=== PATIENT | female | born 1985 | race Caucasian/White ===

== ENCOUNTER 2016-07-11 17:36 | Outpatient (CLI) | payer OTHER ==
[~2016-07-11 17:36] MED LIST: MTR600X PO; OXYC-57 PO; PRENTAB26 PO
== END 2016-07-11 18:10 | disposition home or self-care (01) ==
LOC: C.LD 17:36 → C.OPB 17:36
PROVIDERS: ATTEND Obstetrics & Gynecology
DX: O30.003 Twin pregnancy, unspecified number of placenta and unspecified number of amniotic sacs, third trimester (principal); Z3A.32 32 weeks gestation of pregnancy

== ENCOUNTER 2016-07-18 18:52 | Outpatient (CLI) | payer OTHER ==
--- NOTE | 2016-07-25 11:34 | EDITING REQUIRED CODING QUERY ---
DIAGNOSIS NEEDED To promote full compliance with coding requirements relating to patient care, physician participation is requested in all cases of coil placer uncertainty. Please assist us with the question(s) below: Coding Question: The patient received care in labor and delivery on 07/18/16 as noted within the record. Please document the diagnosis that is being addressed by the medication/treatment. Provider Response: DIAGNOSIS: Twins Thank you for your assistance, Ting Holt - Tufting Supervisor
[2016-08-04] MEDS ORDERED: OXYC-57 PO (08:00)
[2016-08-04] MEDS ORDERED: MTR600X PO (08:00)
== END 2016-07-18 19:20 | disposition home or self-care (01) ==
LOC: C.LD 18:52 → C.OPB 18:52
PROVIDERS: ATTEND Obstetrics & Gynecology
DX: O30.009 Twin pregnancy, unspecified number of placenta and unspecified number of amniotic sacs, unspecified trimester (principal); Z3A.00 Weeks of gestation of pregnancy not specified

== ENCOUNTER 2016-07-25 15:56 | Outpatient (CLI) | payer OTHER ==
--- NOTE | 2016-07-27 07:01 | EDITING REQUIRED CODING QUERY ---
DIAGNOSIS NEEDED To promote full compliance with coding requirements relating to patient care, physician participation is requested in all cases of erp consultant uncertainty. Please assist us with the question(s) below: Coding Question: The patient received care in labor and delivery on 07/25/16 as noted within the record. Please document the diagnosis that is being addressed by the medication/treatment. Provider Response: DIAGNOSIS: Twin Thank you for your assistance, Ting Holt - Scientific Technical Writer
== END 2016-07-25 17:30 | disposition home or self-care (01) ==
LOC: C.LD 15:56 → C.OPB 15:56
PROVIDERS: ATTEND Obstetrics & Gynecology
DX: O30.003 Twin pregnancy, unspecified number of placenta and unspecified number of amniotic sacs, third trimester (principal); Z3A.34 34 weeks gestation of pregnancy

== ENCOUNTER 2016-08-01 10:45 | Inpatient (IN) | payer OTHER ==
[~2016-08-01] VITALS: Ht 157.5 cm; Wt 85.5 kg
[2016-08-01] MEDS: CHECK SCOPOLAMINE PATCH PLACEMENT SCH (08:10)
[2016-08-01] MEDS ORDERED: LACTATED RINGER'S 1000ML 1,000 ML IV ONE (13:24)
[2016-08-01] MEDS ORDERED: CITRIC ACID/SODIUM CITRATE 15 ML UDC PO ONE (13:30)
[2016-08-01 13:49] LABS: BASO % 0.1 %; BASO ABS # 0.01 K/uL (0-0.2); COMPLETE YES; EOS % 2.9 %; HEMATOCRIT 38.5 % (37-47); IG% 0.5 %; LYMPH % 18.3 %; LYMPH ABS # 1.69 K/uL (1.2-3.4); MEAN CELL VOLUME 90.4 fL (80-100); MEAN CORPUSCULAR HEMOGLOBIN 31.5 pg (25-34); MEAN CORPUSCULAR HGB CONC 34.8 g/dl (32-36); MEAN PLATELET VOLUME 11.6 fL (7.4-10.4); MONO % 8.3 %; NEUT % 69.9 %; PLATELET COUNT 148 K/uL (130-400); RED BLOOD COUNT 4.26 M/uL (4.2-5.4); WHITE BLOOD COUNT 9.21 K/uL (4.8-10.8)
[2016-08-01] MEDS ORDERED: CEFAZOLIN IV 2,000 MG in DEXTROSE 5% 50ML 50 ML IV SCH (14:00)
--- NOTE | 2016-08-01 14:08 | Medical Student: [facility] ---
Med Student History & Physical Date of Service Aug 01, 2016. Chief Complaint NST and early labor History of Present Illness Source: patient, clinic records This is 31 year-old female with twin and GA of 35 weeks and 4 days confirmed by US presents for NST with strong contractions. Frequency of contractions is unsure prior to arriving at hospital. She had headache and nausea early this morning, which resolved. She also has constant back pain and ache at the pubic bone. movements are present. She denies vaginal bleeding or fluid discharge. She also denies change in visions, chest pain, SOB , numbness/tingling or calf tenderness. Her course of is complicated for positive 1hr-glucose challenge test. 2hr-glucose challenge test was not done. She was scheduled to have and BTL on Aug 09, 2016 at 37 weeks of gestation. Her prior 2 pregnancies were non-complicated with the first one delivered vaginally and the second one C- section delivered. 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[employer]) Allergies Coded Allergies: Penicillins (Unverified Allergy, Severe, hives, 10/04/14) Amoxicillin (Verified Allergy, Mild, hives, 10/04/14) Home Medications Ibuprofen (Ibuprofen), 600 MG PO Q4H PRN for Pain Multivit/Min/Iron/Fol Ac/Pren ( Vitamin), 1 TAB PO DAILY Oxycodone/Acetaminophen 5MG/325MG (Percocet 5MG/325MG), 2 TAB PO Q4H PRN for Pain - Pain Scale 6-10 Review of Systems Constitutional: No chills, No fever Eyes: No worsening of vision Respiratory: No shortness of breath Cardiovascular: No chest pain Abdomen: + problem reported (contractions - pressure) Musculoskeletal: No calf pain Genitourinary - Female: No vaginal bleeding, No vaginal discharge Neurologic: No numbness/tingling Physical Exam General Appearance: no apparent distress Eyes: normal inspection ENT: hearing grossly normal Neck: supple Respiratory/Chest: lungs clear, normal breath sounds Cardiovascular: regular rate, rhythm, no murmur Abdomen / GI: non tender Genitourinary - Female: + pertinent finding (Cervix check by Dr. Paul 50/-3 ) Extremities: normal inspection, no calf tenderness, no pedal edema Neurologic/Psych: alert, oriented x 3 Skin: normal color Monitoring External Monitor: Reactive - FHR 140s, accelerations, no decelerations. Laboratory Results Test 08/01/16 13:24 Assessment and Plan This is 31 year-old female with twin and GA of 35 weeks and 4 days presents for NST and frequent, strong contractions. Dr. Paul did an exam and patient has progressed from "finger-tip" to /-3 within 1 hour. She is in early labor. Plan Monitoring patient with periodically cervix check. Plan for repeat due to prior . Patient also desires to have tubal ligation done. Provide comfort.
[2016-08-01 14:51] VITALS: Ht 157.5 cm; Wt 85.5 kg
[2016-08-01] MEDS ORDERED: CITRIC ACID/SODIUM CITRATE 15 ML UDC ONE (16:42)
[2016-08-01] MEDS ORDERED: MoRPHine SULFATE PF 1 MG/ML 10 ML AMP/VIAL ONE (16:57)
[2016-08-01] MEDS ORDERED: EpHEDrine SULFATE INJ 50 MG/ML AMP IV PRN ×2 (17:15→18:15)
[2016-08-01] MEDS ORDERED: MEPERIDINE HCL 25 MG/ML CARP IV PRN ×2 (17:15→18:15)
[2016-08-01] MEDS ORDERED: FENTANYL CITRATE INJ 50 MCG/1 ML 2 ML VIAL IV PRN (17:15)
[2016-08-01] MEDS ORDERED: ATROPINE SULFATE 0.1 MG/ML 5ML SYR IV PRN (17:15)
[2016-08-01] MEDS ORDERED: ONDANSETRON INJ 2 MG/ML 2 ML VIAL IV PRN ×2 (17:15→18:15)
[2016-08-01] MEDS ORDERED: LABETALOL HCL IV 5 MG/ML 20ML IV PRN (17:15)
[2016-08-01] MEDS ORDERED: HYDROmorphone INJ 1 MG/ML SYR IV PRN (17:15)
[2016-08-01] MEDS ORDERED: SCOPOLAMINE 1.5 MG TDSY TD SCH (17:45)
[2016-08-01] MEDS ORDERED: SODIUM CHLORIDE 0.9% 1000ML 1,000 ML IV PRN (18:06)
[2016-08-01] MEDS ORDERED: NALOXONE HCL INJ 0.08 MG in SYRINGE 1.8 ML IV PRN (18:06)
[2016-08-01] MEDS ORDERED: NALOXONE HCL INJ 1 MG in SODIUM CHLORIDE 0.9% 1000ML 1,000 ML IV PRN (18:06)
[2016-08-01] MEDS ORDERED: LACTATED RINGER'S 1000ML 500 ML IV PRN (18:06)
[2016-08-01] MEDS ORDERED: ONDANSETRON INJ 2 MG/ML 2 ML VIAL ONE (18:09)
[2016-08-01] MEDS ORDERED: DEXAMETHASONE SOD INJ 4 MG/ML VIAL ONE (18:09)
[2016-08-01] MEDS ORDERED: OXYTOCIN INJ 10 UNITS/ML VIAL ONE (18:09)
[2016-08-01] MEDS ORDERED: PHENYLEPHRINE 100MCG/ML 5ML SYR ONE (18:12)
[2016-08-01] MEDS ORDERED: EpHEDrine SULFATE 50MG/5ML SYR ONE (18:12)
[2016-08-01] MEDS ORDERED: NO NARCOTICS OR SEDATIVES SCH (18:15)
[2016-08-01] MEDS ORDERED: DiphenhydrAMINE HCL 50 MG/ML VIAL IV PRN ×2 (18:15)
[2016-08-01] MEDS ORDERED: MoRPHine SULFATE PF 1 MG/ML 10 ML AMP/VIAL EPI PRN (18:15)
[2016-08-01] MEDS ORDERED: NALOXONE HCL 0.4 MG/1 ML VIAL/CARP IV PRN (18:15)
[2016-08-01] MEDS ORDERED: MoRPHine SULFATE 2 MG/ML CARP IV PRN (18:15)
[2016-08-01] MEDS ORDERED: METOCLOPRAMIDE HCL INJ 20 MG in SODIUM CHLORIDE 0.9% 50ML 50 ML IV PRN (18:15)
[2016-08-01] MEDS ORDERED: PROMETHAZINE HCL INJ 25 MG in SODIUM CHLORIDE 0.9% 50ML 50 ML IV PRN (18:15)
[2016-08-01] MEDS ORDERED: LACTATED RINGER'S 1000ML 1,000 ML IV SCH (18:20)
[2016-08-01] MEDS ORDERED: BENZOCAINE 20% AER SPR 82.5 GM CAN EXT PRN (18:30)
[2016-08-01] MEDS ORDERED: HYDROCORTISONE ACETATE 25 MG SUPP PR PRN (18:30)
[2016-08-01] MEDS ORDERED: SUPERCREAM 0.870 % 15GM JAR EXT PRN (18:30)
[2016-08-01] MEDS ORDERED: LANOLIN OINT EXT PRN ×2 (18:30)
[2016-08-01] MEDS ORDERED: DIPHTHERIA/TETANUS/PERTUSSIS 0.5 ML SYR/VIAL IM. ONE (18:30)
--- NOTE | 2016-08-01 18:43 | [facility] Post Operative Brief Note ---
Immediate Operative Summary Operative Date Aug 01, 2016. Pre-Operative Diagnosis Summers/Di twins at 35 and 4/7 week. Prior caesarean section. Declines . Desires sterilization. Post-Operative Diagnosis Same as above. Procedure(s) Performed Repeat caesarean section with bilateral tubal ligation. Surgeon Dr Paul Laser/Electro Optics Technician Surgeon(s) Dr. Pool Estimated Blood Loss 600cc Findings normal ovaries and tubes bilaterally. Babies Vtx/Vtx with separate amniotic sacs. Placenta with excessive markel jelly in cord of B. Specimens A: Placenta cordA one clamp, cord B two clamps B: Cord Blood C: Portion of right and left fallopian tubes Complication(s) None Disposition L&D
[2016-08-01] MEDS: OXYTOCIN INJ 30 UNITS in LACTATED RINGER'S 1000ML 1,000 ML IV SCH (19:09)
[2016-08-01] MEDS: KETOROLAC TROMETHAMINE 30 MG/ML VIAL IV. PRN (19:17)
[2016-08-01] MEDS: NALBUPHINE HCL INJ 10 MG/ML AMP IV PRN (20:41)
[2016-08-01 21:25] VITALS: BP 104/64; PULSE 72; TEMP 36.4; O2SAT 100
[2016-08-01] MEDS: SIMETHICONE 80 MG CHEW PO SCH (21:30)
[2016-08-01] MEDS: DOCUSATE SODIUM 100 MG CAP PO SCH (21:30)
[2016-08-01 22:25] VITALS: BP 120/72; PULSE 62; O2SAT 100
[2016-08-01 23:56] VITALS: BP 128/76; PULSE 62; TEMP 36.6; O2SAT 100
[2016-08-02] VITALS (17 sets, daily range): BP systolic 102–114; BP diastolic 59–73; PULSE 60–98; TEMP 36.3–36.6; O2SAT 93–100
[2016-08-02] MEDS: KETOROLAC TROMETHAMINE 30 MG/ML VIAL IV. PRN ×2 (01:37→08:04)
[2016-08-02] MEDS: NALBUPHINE HCL INJ 10 MG/ML AMP IV PRN (01:37)
[2016-08-02] MEDS: OXYTOCIN INJ 30 UNITS in LACTATED RINGER'S 1000ML 1,000 ML IV SCH (04:34)
[2016-08-02] MEDS: SIMETHICONE 80 MG CHEW PO SCH ×4 (06:24→20:11)
--- NOTE | 2016-08-02 07:04 | Progress Note ---
Subjective Aug 02, 2016. Subjective conversation w/ patient, physical exam Ambulation: ambulating normally Voiding: no voiding problems Passing Gas: Yes Diet Tolerance: Regular Diet Lochia: Small Feeding Type: Breast Feeding Pain: Incisional pain well controlled with pain medication Review of Systems Constitutional: No chills, No fever Respiratory: No cough, No shortness of breath Cardiac: No chest pain Breast: No breast pain Abdomen: No nausea, No pain, No vomiting Female : No dysuria Objective Vital Signs Date Time Temp Pulse Resp B/P Pulse Ox O2 Delivery O2 Flow Rate FiO2 08/02/16 06:00 18 98 08/02/16 04:56 18 98 08/02/16 04:56 36.3 98 18 104/59 08/02/16 04:00 20 99 08/02/16 03:25 22 99 08/02/16 03:00 18 93 08/02/16 02:00 18 100 08/02/16 01:00 18 95 08/02/16 00:04 18 100 08/02/16 00:00 100 Room Air 08/01/16 23:56 36.6 62 18 128/76 100 Room Air 08/01/16 22:25 18 100 08/01/16 22:25 62 18 120/72 100 Room Air 08/01/16 21:25 100 Room Air 08/01/16 21:25 36.4 72 18 104/64 100 Room Air 08/01/16 21:25 18 100 Physical Exam General Appearance: WELL-APPEARING, WD/WN, NO APPARENT DISTRESS Respiratory/Chest: lungs clear, normal breath sounds Cardiovascular: regular rate, rhythm, no gallop, no murmur Abdomen: non tender, soft Fundus: Firm, Relation to Umbilicus (1cm below umbilicus) Incision Description: Clean, Dry & Intact Extremities: no calf tenderness Laboratory Results Last 24 Hours Test 08/01/16 13:40 08/02/16 06:00 White Blood Count 9.21 K/uL Red Blood Count 4.26 M/uL Hemoglobin 13.4 g/dL Hematocrit 38.5 % Mean Corpuscular Volume 90.4 fL Mean Corpuscular Hemoglobin 31.5 pg Mean Corpuscular Hemoglobin Concent 34.8 g/dl Platelet Count 148 K/uL Mean Platelet Volume 11.6 fL Neutrophils (%) (Auto) 69.9 % Lymphocytes (%) (Auto) 18.3 % Monocytes (%) (Auto) 8.3 % Eosinophils (%) (Auto) 2.9 % Basophils (%) (Auto) 0.1 % Neutrophils # (Auto) 6.43 K/uL Lymphocytes # (Auto) 1.69 K/uL Monocytes # (Auto) 0.76 K/uL Eosinophils # (Auto) 0.27 K/uL Basophils # (Auto) 0.01 K/uL RDW Standard Deviation 45.3 fL RDW Coefficient of Variation 13.8 % Immature Granulocyte % (Auto) 0.5 % Immature Granulocyte # (Auto) 0.05 K/uL Medications Current Inpatient Medications Medications (Trade) Dose Ordered Sig/Rhona Route Start Time Stop Time Status Last Admin Dose Admin Miscellaneous (Remove Transderm-Scop Patch) 1 ea Q72H N/A 08/04/16 06:00 08/04/16 06:01 Miscellaneous Information (Check Scopolamine Patch Placement) 1 ea QS N/A 08/01/16 16:00 08/04/16 05:59 Naloxone HCl (Narcan Inj) 0.1 mg UD PRN IV 08/01/16 18:15 08/02/16 11:15 Diphenhydramine HCl (Benadryl Inj) 25 mg Q6H PRN IV 08/01/16 18:15 08/02/16 11:15 Nalbuphine HCl 5 mg 5 mg Q10M PRN IV 08/01/16 18:15 08/02/16 11:15 08/02/16 01:37 5 MG Naloxone HCl/ Sodium Chloride (Narcan Inj/Nss 1000ml) 1,002.5 ml @ 50 mls/hr Q20H3M PRN IV 08/01/16 18:06 08/02/16 11:15 Ondansetron HCl 4 mg 4 mg Q6H PRN IV 08/01/16 18:15 08/02/16 11:15 08/02/16 01:37 4 MG Promethazine HCl/ Sodium Chloride (Phenergan Inj/ Nss 50ml) 51 ml @ 200 mls/hr Q6H PRN IV 08/01/16 18:15 08/02/16 11:15 Ketorolac Tromethamine (Toradol Inj) 30 mg Q6H PRN IV. 08/01/16 18:15 08/02/16 11:15 08/02/16 01:37 30 MG Meperidine HCl 25 mg 25 mg Q15M PRN IV 08/01/16 18:15 08/02/16 11:15 Metoclopramide HCl/Sodium Chloride (Reglan Inj/Nss 50ml) 54 ml @ 200 mls/hr Q6H PRN IV 08/01/16 18:15 08/02/16 11:15 Miscellaneous Information (Dc Intraspinal Morphine) 1 ea 1115 N/A 08/02/16 11:15 08/02/16 11:16 Miscellaneous Information 1 ea 1 ea UD N/A 08/01/16 18:15 08/02/16 11:15 Naloxone HCl/ Syringe (Narcan Inj/ Syringe) 2 ml @ 1 mls/min Q2M PRN IV 08/01/16 18:06 08/02/16 11:15 Diphenhydramine HCl (Benadryl Cap) 50 mg HS PRN PO 08/01/16 18:15 08/02/16 11:15 Diphenhydramine HCl (Benadryl Inj) 25 mg HS PRN IV 08/01/16 18:15 08/02/16 11:15 Morphine Sulfate 2 mg 2 mg Q6H PRN IV 08/01/16 18:15 08/15/16 11:15 Lactated Ringer's (Lr 1000ml) 500 ml @ 999 mls/hr Q31M PRN IV 08/01/16 18:06 08/02/16 11:15 Ephedrine Sulfate (EpHEDrine SULFATE INJ) 10 mg Q5M PRN IV 08/01/16 18:15 08/02/16 11:15 Morphine Sulfate TODAY PRN EPI 08/01/16 18:15 08/02/16 11:15 Sodium Chloride 1,000 ml @ 15 mls/hr Q24H PRN IV 08/01/16 18:06 08/31/16 18:05 Oxytocin 30 units/ Lactated Ringer's 1,003 ml @ 125 mls/hr Q8H2M IV 08/01/16 19:00 08/31/16 18:19 08/02/16 04:34 125 MLS/HR Lactated Ringer's (Lr 1000ml) 1,000 ml @ 125 mls/hr Q8H IV 08/01/16 18:20 08/31/16 18:19 Ketorolac Tromethamine (Toradol Inj) 30 mg Q6H PRN IV. 08/02/16 11:16 08/06/16 18:29 Meperidine HCl (Demerol Inj) 50 mg Q4H PRN IV 08/02/16 11:16 08/16/16 11:15 Meperidine HCl (Demerol Inj) 75 mg Q4H PRN IV 08/02/16 11:16 08/16/16 11:15 Oxycodone/ Acetaminophen (Percocet 5-325mg Tab) 1 tab Q4H PRN PO 08/02/16 11:16 08/16/16 11:15 Oxycodone/ Acetaminophen (Percocet 5-325mg Tab) 2 tab Q4H PRN PO 08/02/16 11:16 08/16/16 11:15 Ibuprofen 600 mg 600 mg Q4H PRN PO 08/01/16 18:30 08/31/16 18:29 Promethazine HCl/ Sodium Chloride (Phenergan Inj/ Nss 50ml) 51 ml @ 204 mls/hr Q4H PRN IV 08/02/16 11:16 09/01/16 11:15 Ondansetron HCl (Zofran Inj) 4 mg Q4H PRN IV 08/02/16 11:16 09/01/16 11:15 Prenat Multivit/ [place]/Iron/Folic Ac ( Vitamin Tab) 1 tab DAILY PO 08/02/16 08:00 09/01/16 07:59 Docusate Sodium (coLACE CAP) 100 mg BID PO 08/01/16 20:00 08/31/16 19:59 Cocaine HCl (Supercream 0.870% Cr) BID PRN EXT 08/01/16 18:30 08/15/16 18:29 Lanolin (Lanolin Oint) PRN PRN EXT 08/01/16 18:30 08/31/16 18:29 Hydrocortisone Acetate (Anusol Hc Supp) 25 mg BID PRN PA 08/01/16 18:30 08/31/16 18:29 Benzocaine (Dermoplast Aero Spr) 1 appln PRN PRN EXT 08/01/16 18:30 08/31/16 18:29 Simethicone (Mylicon Chew Tab) 80 mg QID PO 08/01/16 21:00 08/31/16 20:59 08/02/16 06:24 80 MG Diphenhydramine HCl (Benadryl Cap) 25 mg QID PRN PO 08/02/16 11:16 09/01/16 11:15 Diphenhydramine HCl (Benadryl Inj) 25 mg QID PRN IV 08/02/16 11:16 09/01/16 11:15 Assessment and Plan Post-Op Day#: 1 Continue Routine Care: - Vital Signs reviewed and WNL (temp max 36.3) - Blood Type: A+, GBS unknown , Rubella Immune - Patient doing well clinically - Encourage Ambulation today - Gonzales catheter still in place, observe for urination after gonzales removal this morning - Advance to PO diet, tolerating liquid diet currently - Pain well controlled, minor incisional pain treated with IV toradol Resident Physician Supervision Note: I interviewed and examined the patient. Discussed with Dr. Bradley and agree with findings and plan as documented in the note. Any exceptions or clarifications are listed here: [None] Documented By: Brandy Paul
[2016-08-02 07:25] LABS: BASO % 0.1 %; BASO ABS # 0.01 K/uL (0-0.2); COMPLETE YES; EOS % 0.1 %; HEMATOCRIT 32.6 % (37-47); IG% 0.3 %; LYMPH % 10.4 %; LYMPH ABS # 1.46 K/uL (1.2-3.4); MEAN CELL VOLUME 91.1 fL (80-100); MEAN PLATELET VOLUME 12.1 fL (7.4-10.4); NEUT % 80.1 %; PLATELET COUNT 133 K/uL (130-400); RED BLOOD COUNT 3.58 M/uL (4.2-5.4); WHITE BLOOD COUNT 14.06 K/uL (4.8-10.8)
--- NOTE | 2016-08-02 08:38 | OPERATIVE REPORT ---
DATE OF OPERATION: 08/01/2016 PREOPERATIVE DIAGNOSES: Monochorionic-diamniotic twins at 35 and 4/7 weeks, prior section, declines vaginal after , and desires sterilization. POSTOPERATIVE DIAGNOSES: Same as above. PROCEDURE: Repeat low transverse section with bilateral tubal ligation. SURGEON: Dr. Brandy Paul. BUTCHER SCULLION: Yrn. ESTIMATED BLOOD LOSS: 600 mL. FINDINGS: Normal ovaries and tubes bilaterally. Babies were vertex and vertex with separate amniotic sacs and a single placenta with excessive Yazmin jelly in the cord of baby B was also noted. SPECIMENS: Equal placenta with a single clamp on cord A and double clamp on cord B. Cord blood and the portions of right and left fallopian tubes. COMPLICATIONS: None. DISPOSITION: Stable in labor and delivery. DESCRIPTION OF PROCEDURE: Blossom was brought to the operating room, placed on the table in the supine position with a leftward tilt, prepped and draped in standard sterile fashion and a hard time-out was taken prior to proceeding. An incision was created just inferior to her prior Pfannenstiel. This was carried sharply to the fascia, which was incised and extended laterally using Lopez scissors. The midline of the rectus was naturally and the peritoneum was entered bluntly. A bladder blade was placed. Examination revealed the head of baby A in the normal position in the lower uterine segment. A bladder flap was created. A transverse low uterine incision was created with final entry to the uterus being made in a blunt manner using the surgeon's finger. This incision was extended. Two distinct amniotic sacs were visible through the hysterotomy. The sac of baby A was deliberately ruptured for clear fluid and the head of baby A was elevated to the hysterotomy and then delivered using mild fundal pressure. The cord was clamped and cut and the infant was taken to the warmer. Baby B's sac was then deliberately ruptured for clear fluid and the head of baby B, which was in the maternal left lower quadrant, was brought to the hysterotomy and again delivered with mild fundal pressure. The cord was clamped, cut and the was taken to the warmer. Two clamps were placed on the cord of baby B, which was noted to have increased Marinette's jelly as compared to the cord of baby A. The placenta was then manually extracted and will be sent for examination. The uterus was gently exteriorized, cleared of all clot and debris using a dry lap sponge. The hysterotomy was repaired in 2-layer fashion using 0 Vicryl suture. At the completion of the repair, the hysterotomy was hemostatic. Attention was then turned to the tubal ligation. Each tube in turn was elevated with a [place] clamp. Knuckle of tube was isolated using a double ligature of 0 chromic suture. The isolated portion of tube was then excised and will be sent for pathology. The cut ends of the tube were observed for hemostasis. This procedure was performed first on the right side and then on the left side. Ovaries were noted to be normal appearing bilaterally. Reexamination of the hysterotomy revealed a small amount of bleeding at the mid portion of the incision. This was controlled using a [id number] 0 chromic suture. The uterus was then gently reapproximated. The gutters were cleared of all clot and debris using damp lap sponges and copious irrigation. The final check of the hysterotomy revealed good hemostasis. The abdominis muscles were then reapproximated in the midline at the patient's request using 0 chromic suture. The fascia was then closed using #1 Vicryl in a running nonlocked manner, at the completion of which the fascia was examined and found to be free of any defect. The subcutaneous tissue was irrigated and closed with 3-0 chromic and the skin was closed with 4-0 Monocryl followed by a Dermabond dressing. The [place] was draining clear yellow urine and the patient was in stable condition at that time the surgical procedure being completed. I attest to the content of the Intraoperative Record and any orders documented therein. Any exceptio ns are noted below.
[2016-08-02] MEDS: PRENATAL VITAMIN TAB PO SCH (10:22)
[2016-08-02] MEDS: DOCUSATE SODIUM 100 MG CAP PO SCH ×2 (10:22→20:11)
[2016-08-02] MEDS ORDERED: DC INTRASPINAL MORPHINE SCH (11:15)
[2016-08-02] MEDS ORDERED: DiphenhydrAMINE HCL 50 MG/ML VIAL IV PRN (11:16)
[2016-08-02] MEDS ORDERED: KETOROLAC TROMETHAMINE 30 MG/ML VIAL IV. PRN (11:16)
[2016-08-02] MEDS ORDERED: OXYCODONE/ACETAMINOPHEN 5-325 TAB PO PRN (11:16)
[2016-08-02] MEDS ORDERED: ONDANSETRON INJ 2 MG/ML 2 ML VIAL IV PRN (11:16)
[2016-08-02] MEDS ORDERED: MEPERIDINE HCL 50 MG/ML CARP IV PRN (11:16)
[2016-08-02] MEDS ORDERED: PROMETHAZINE HCL INJ 25 MG in SODIUM CHLORIDE 0.9% 50ML 50 ML IV PRN (11:16)
[2016-08-02] MEDS ORDERED: MEPERIDINE HCL 75 MG/ML CARP IV PRN (11:16)
[2016-08-02] MEDS: OXYCODONE/ACETAMINOPHEN 5-325 TAB PO PRN ×3 (14:06→22:06)
[2016-08-02] MEDS: IBUPROFEN 600 MG TAB PO PRN ×3 (14:06→22:07)
[2016-08-02] MEDS: CHECK SCOPOLAMINE PATCH PLACEMENT SCH (15:00)
[2016-08-03 00:02] VITALS: BP 121/75; PULSE 79; TEMP 36.6
[2016-08-03] MEDS: OXYCODONE/ACETAMINOPHEN 5-325 TAB PO PRN ×5 (01:35→19:54)
[2016-08-03] MEDS: IBUPROFEN 600 MG TAB PO PRN ×5 (01:35→19:54)
--- NOTE | 2016-08-03 06:57 | Progress Note ---
Subjective Aug 03, 2016. Subjective conversation w/ patient, physical exam Ambulation: ambulating normally Voiding: no voiding problems Passing Gas: Yes Diet Tolerance: Regular Diet Lochia: Small Feeding Type: Breast Feeding Pain: No pain reported Review of Systems Constitutional: No chills, No fever Respiratory: No cough, No shortness of breath Cardiac: No chest pain Breast: No breast pain Abdomen: No nausea, No pain, No vomiting Female : No dysuria Objective Vital Signs Date Time Temp Pulse Resp B/P Pulse Ox O2 Delivery O2 Flow Rate FiO2 08/03/16 00:05 Room Air 08/03/16 00:02 36.6 79 18 121/75 Room Air 08/02/16 15:45 36.6 67 20 114/73 100 Room Air 08/02/16 15:45 36.6 67 18 114/73 100 Room Air 08/02/16 15:45 100 Room Air 08/02/16 12:50 36.6 71 20 106/64 97 Room Air 08/02/16 11:00 18 98 08/02/16 10:00 18 97 08/02/16 09:00 18 99 08/02/16 08:30 36.6 60 18 102/61 98 Room Air 08/02/16 08:30 98 Room Air 08/02/16 08:00 20 98 08/02/16 07:00 20 99 Physical Exam General Appearance: WELL-APPEARING, WD/WN, NO APPARENT DISTRESS Respiratory/Chest: lungs clear, normal breath sounds Cardiovascular: regular rate, rhythm, no gallop, no murmur Abdomen: non tender, soft Fundus: Firm, Relation to Umbilicus (1cm below umbilicus) Incision Description: Clean, Dry & Intact Extremities: no calf tenderness Medications Current Inpatient Medications Medications (Trade) Dose Ordered Sig/Rhona Route Start Time Stop Time Status Last Admin Dose Admin Miscellaneous (Remove Transderm-Scop Patch) 1 ea Q72H N/A 08/04/16 06:00 08/04/16 06:01 Miscellaneous Information (Check Scopolamine Patch Placement) 1 ea QS N/A 08/01/16 16:00 08/04/16 05:59 08/02/16 15:00 1 EA Morphine Sulfate 2 mg 2 mg Q6H PRN IV 08/01/16 18:15 08/15/16 11:15 Sodium Chloride 1,000 ml @ 15 mls/hr Q24H PRN IV 08/01/16 18:06 08/31/16 18:05 Oxytocin 30 units/ Lactated Ringer's 1,003 ml @ 125 mls/hr Q8H2M IV 08/01/16 19:00 08/31/16 18:19 08/02/16 04:34 125 MLS/HR Lactated Ringer's (Lr 1000ml) 1,000 ml @ 125 mls/hr Q8H IV 08/01/16 18:20 08/31/16 18:19 Ketorolac Tromethamine (Toradol Inj) 30 mg Q6H PRN IV. 08/02/16 11:16 08/06/16 18:29 Meperidine HCl (Demerol Inj) 50 mg Q4H PRN IV 08/02/16 11:16 08/16/16 11:15 Meperidine HCl (Demerol Inj) 75 mg Q4H PRN IV 08/02/16 11:16 08/16/16 11:15 Oxycodone/ Acetaminophen (Percocet 5-325mg Tab) 1 tab Q4H PRN PO 08/02/16 11:16 08/16/16 11:15 08/03/16 01:35 1 TAB Oxycodone/ Acetaminophen (Percocet 5-325mg Tab) 2 tab Q4H PRN PO 08/02/16 11:16 08/16/16 11:15 Ibuprofen 600 mg 600 mg Q4H PRN PO 08/01/16 18:30 08/31/16 18:29 08/03/16 01:35 600 MG Promethazine HCl/ Sodium Chloride (Phenergan Inj/ Nss 50ml) 51 ml @ 204 mls/hr Q4H PRN IV 08/02/16 11:16 09/01/16 11:15 Ondansetron HCl (Zofran Inj) 4 mg Q4H PRN IV 08/02/16 11:16 09/01/16 11:15 Prenat Multivit/ Utilities Ground Worker/Iron/Folic Ac ( Vitamin Tab) 1 tab DAILY PO 08/02/16 08:00 09/01/16 07:59 08/02/16 10:22 1 TAB Docusate Sodium (coLACE CAP) 100 mg BID PO 08/01/16 20:00 08/31/16 19:59 08/02/16 20:11 100 MG Cocaine HCl (Supercream 0.870% Cr) BID PRN EXT 08/01/16 18:30 08/15/16 18:29 Lanolin (Lanolin Oint) PRN PRN EXT 08/01/16 18:30 08/31/16 18:29 Hydrocortisone Acetate (Anusol Hc Supp) 25 mg BID PRN [place] 08/01/16 18:30 08/31/16 18:29 Benzocaine (Dermoplast Aero Spr) 1 appln PRN PRN EXT 08/01/16 18:30 08/31/16 18:29 Simethicone (Mylicon Chew Tab) 80 mg QID PO 08/01/16 21:00 08/31/16 20:59 08/02/16 20:11 80 MG Diphenhydramine HCl (Benadryl Cap) 25 mg QID PRN PO 08/02/16 11:16 09/01/16 11:15 08/02/16 22:35 25 MG Diphenhydramine HCl (Benadryl Inj) 25 mg QID PRN IV 08/02/16 11:16 09/01/16 11:15 Assessment and Plan Post-Op Day#: 2 Continue Routine Care: - Vital Signs reviewed and WNL (temp max 36.6) - Blood Type: A+, GBS unknown , Rubella Immune - Patient doing well clinically - Encourage Ambulation today - Tolerating PO Diet - Pain well controlled Resident Physician Supervision Note: I was present with Dr. Bradley during the history and exam. I discussed the case with the resident and agree with the findings and plan as documented in the note. Any exceptions or clarifications are listed here: POD#2 twins , doing well. Goals for today: ambulation and PO hydration. Anticipate discharge home tomorrow. Documented By: Sintia Pool
[2016-08-03] MEDS: DOCUSATE SODIUM 100 MG CAP PO SCH ×2 (07:19→19:53)
[2016-08-03] MEDS: PRENATAL VITAMIN TAB PO SCH (07:19)
[2016-08-03] MEDS: SIMETHICONE 80 MG CHEW PO SCH ×4 (07:19→19:53)
[2016-08-03 08:00] VITALS: BP 122/71; PULSE 78; TEMP 36.7
[2016-08-03] MEDS: CHECK SCOPOLAMINE PATCH PLACEMENT SCH (16:00)
[2016-08-03 16:40] VITALS: BP 124/80; PULSE 73; TEMP 36.6; O2SAT 98
[2016-08-03] MEDS ORDERED: SENNA 8.6 MG TAB PO SCH (22:00)
[2016-08-03] MEDS ORDERED: MAGNESIUM HYDROXIDE SUSP 30 ML UDC PO SCH (22:00)
[2016-08-03 23:50] VITALS: BP 117/76; PULSE 78; TEMP 36.7; O2SAT 100
[2016-08-04] MEDS: CHECK SCOPOLAMINE PATCH PLACEMENT SCH
[2016-08-04] MEDS: IBUPROFEN 600 MG TAB PO PRN ×4 (00:03→12:12)
[2016-08-04] MEDS: OXYCODONE/ACETAMINOPHEN 5-325 TAB PO PRN ×4 (00:04→12:12)
--- NOTE | 2016-08-04 06:50 | Progress Note ---
Subjective Aug 04, 2016. Subjective conversation w/ patient, physical exam Ambulation: ambulating normally Voiding: no voiding problems Passing Gas: Yes Diet Tolerance: Regular Diet Lochia: Small Feeding Type: Breast Feeding Pain: No pain reported this morning Review of Systems Constitutional: No chills, No fever Respiratory: No cough, No shortness of breath Cardiac: No chest pain Breast: No breast pain Abdomen: No nausea, No pain, No vomiting Female : No dysuria Objective Vital Signs Date Time Temp Pulse Resp B/P Pulse Ox O2 Delivery O2 Flow Rate FiO2 08/03/16 23:50 100 Room Air 08/03/16 23:50 36.7 78 18 117/76 100 Room Air 08/03/16 16:40 98 Room Air 08/03/16 16:40 36.6 73 16 124/80 98 Room Air 08/03/16 08:15 Room Air 08/03/16 08:00 36.7 78 18 122/71 Room Air Physical Exam General Appearance: WELL-APPEARING, WD/WN, NO APPARENT DISTRESS Respiratory/Chest: lungs clear, normal breath sounds Cardiovascular: regular rate, rhythm, no gallop, no murmur Abdomen: non tender, soft Fundus: Firm, Relation to Umbilicus (1cm below umbilicus) Incision Description: Clean, Dry & Intact Extremities: no calf tenderness Medications Current Inpatient Medications Medications (Trade) Dose Ordered Sig/Rhona Route Start Time Stop Time Status Last Admin Dose Admin Morphine Sulfate 2 mg 2 mg Q6H PRN IV 08/01/16 18:15 08/15/16 11:15 Sodium Chloride 1,000 ml @ 15 mls/hr Q24H PRN IV 08/01/16 18:06 08/31/16 18:05 Oxytocin 30 units/ Lactated Ringer's 1,003 ml @ 125 mls/hr Q8H2M IV 08/01/16 19:00 08/31/16 18:19 08/02/16 04:34 125 MLS/HR Lactated Ringer's (Lr 1000ml) 1,000 ml @ 125 mls/hr Q8H IV 08/01/16 18:20 08/31/16 18:19 Ketorolac Tromethamine (Toradol Inj) 30 mg Q6H PRN IV. 08/02/16 11:16 08/06/16 18:29 Meperidine HCl (Demerol Inj) 50 mg Q4H PRN IV 08/02/16 11:16 08/16/16 11:15 Meperidine HCl (Demerol Inj) 75 mg Q4H PRN IV 08/02/16 11:16 08/16/16 11:15 Oxycodone/ Acetaminophen (Percocet 5-325mg Tab) 1 tab Q4H PRN PO 08/02/16 11:16 08/16/16 11:15 08/04/16 04:04 1 TAB Oxycodone/ Acetaminophen (Percocet 5-325mg Tab) 2 tab Q4H PRN PO 08/02/16 11:16 08/16/16 11:15 Ibuprofen 600 mg 600 mg Q4H PRN PO 08/01/16 18:30 08/31/16 18:29 08/04/16 04:04 600 MG Promethazine HCl/ Sodium Chloride (Phenergan Inj/ Nss 50ml) 51 ml @ 204 mls/hr Q4H PRN IV 08/02/16 11:16 09/01/16 11:15 Ondansetron HCl (Zofran Inj) 4 mg Q4H PRN IV 08/02/16 11:16 09/01/16 11:15 Prenat Multivit/ [place]/Iron/Folic Ac ( Vitamin Tab) 1 tab DAILY PO 08/02/16 08:00 09/01/16 07:59 08/03/16 07:19 1 TAB Docusate Sodium (coLACE CAP) 100 mg BID PO 08/01/16 20:00 08/31/16 19:59 08/03/16 19:53 100 MG Cocaine HCl (Supercream 0.870% Cr) BID PRN EXT 08/01/16 18:30 08/15/16 18:29 Lanolin (Lanolin Oint) PRN PRN EXT 08/01/16 18:30 08/31/16 18:29 Hydrocortisone Acetate (Anusol Hc Supp) 25 mg BID PRN SC 08/01/16 18:30 08/31/16 18:29 Benzocaine (Dermoplast Aero Spr) 1 appln PRN PRN EXT 08/01/16 18:30 08/31/16 18:29 Simethicone (Mylicon Chew Tab) 80 mg QID PO 08/01/16 21:00 08/31/16 20:59 08/03/16 19:53 80 MG Diphenhydramine HCl (Benadryl Cap) 25 mg QID PRN PO 08/02/16 11:16 09/01/16 11:15 08/02/16 22:35 25 MG Diphenhydramine HCl (Benadryl Inj) 25 mg QID PRN IV 08/02/16 11:16 09/01/16 11:15 Bisacodyl (Dulcolax Supp) 10 mg PRN PRN SC 08/05/16 16:00 09/04/16 15:59 Magnesium Hydroxide (Milk Of Magnesia Susp) 30 ml HS PO 08/03/16 22:00 09/02/16 21:59 08/03/16 21:15 30 ML Senna (Senokot Tab) 17.2 mg HS PO 08/03/16 22:00 09/02/16 21:59 08/03/16 16:51 17.2 MG Assessment and Plan Post-Op Day#: 3 Continue Routine Care: - Vital Signs reviewed and WNL (temp max 36.7) - Blood Type: A+, GBS Negative, Rubella Immune - Patient doing well clinically - Encourage Ambulation today - Tolerating PO Diet - Pain well controlled - Babies slightly jaundiced and checking direct bili today - Discharge if babies approved by peds Resident Physician Supervision Note: I interviewed and examined the patient. Discussed with Dr. Bradley and agree with findings and plan as documented in the note. Any exceptions or clarifications are listed here: [None] Documented By: Enmanuel Ibrahim
--- NOTE | 2016-08-04 06:52 | Discharge Instructions ---
Discharge Instructions Admission Reason for Admission: Nst - Monochorionic Diamniotic Twin Gestation Discharge Discharge Diagnosis / Problem: Delivery Discharge Goals Goal(s): Routine recovery after Medications Continue Dispensed Medications: supercream, dermaplast, tucks, lansinoh Activity Recommendations Activity Limitations: per Instructions/Follow-up section . Instructions / Follow-Up Instructions / Follow-Up ACTIVITY RECOMMENDATIONS: * Gradual return to full activity over the next 2-3 weeks. * No lifting - nothing heavier than baby over the next 2-3 weeks. * Do not engage in vigorous exercise, sexual activity or sports until cleared by your physician. * Do not drive or operate any motorized equipment until cleared by your physician. * You may shower/bathe daily. MEDICATIONS: For discomfort or pain, you may use Acetaminophen (Tylenol), Ibuprofen (Advil), or Naproxen (Aleve) following the package directions. For constipation you may use Colace following the package directions. BREAST CARE: If you are not breast feeding: * Wear a supportive bra 24 hours a day for one to two weeks. * Avoid stimulating your breasts and nipples as much as possible during the first few weeks after delivery. * When taking a shower, have the warm water hit your back, not breasts. * When your breasts feel full, apply ice packs. Usually three to four times a day helps ease the discomfort. * Take a mild pain medication (Tylenol / Motrin) when you are uncomfortable. If breast feeding: * Use breast milk to lubricate nipples. Lansinoh cream may be used for sore nipples. You do not need to remove cream prior to breast feeding. If using a different brand of cream, check the label for directions regarding removal of cream prior to nursing. * Wear a supportive bra. * If having problems with breasts or breast feeding, call a documentum consultant or your health care provider. SPECIAL CARE INSTRUCTIONS: When you are discharged from the hospital, it is important for you to follow the instructions listed below: * During the first week at home, you should be able to care for yourself and your baby. In addition, the usual light household activities are encouraged. * Limit your activities to the way you feel. Do not try to clean the house or move furniture. Be sensible. * If you actively engage in sports and have done so up until the time of your delivery, you may resume these activities as soon as you feel able. This may take up to one month or even longer. Use good judgment. * Continue to take your vitamins for at least six weeks after the of your baby. * Your diet need not be limited unless you were on a special diet before your delivery. Breast-feeding mothers need around 2500 calories per day and at least 64-80 ounces of fluid per day (8 to 10 glasses). * You should eat foods from the four major food groups. Crash diets or fad diets are to be avoided. Eating lean meats, fresh fruits and vegetables, low-fat dairy products, high fiber foods and a regular exercise program, will help you get back to your pre- weight without putting your health at risk. * Constipation is sometimes a problem after delivery. Take a mild laxative as needed. If breast feeding, Milk of Magnesia is acceptable to use. You may use a suppository or Fleets enema. * A daily shower or tub bath is suggested. Wash incision daily with warm soapy water and pat dry. It doesn't need to be covered unless drainage is present. * A bloody vaginal discharge will usually continue until around four weeks . A small amount of bleeding may continue for as long as six weeks. Vaginal discharge changes from the bright red bleeding after delivery to pink then brownish and finally yellowish-pink before becoming white and disappearing. * Bleeding may increase with activity. Your first period may come in 4-8 weeks. If you are breast feeding, your period may be delayed even longer. * [place] (sex) can begin whenever both you and your partner feel comfortable and do not have any form of genital infection. It is recommended that you wait at least six weeks for internal and external healing to occur. If you have questions, please talk to your health care practitioner. A condom should be used to prevent infection and . * Foreplay, gentle intercourse and lubrication is very important the first several times to prevent pain. A water-based lubricant such as K-Y jelly or Astroglide may be used. * If you have RH negative blood and your baby is RH positive, you will receive RHOGAM by injection prior to discharge. The nurse will give you a card to keep with you that has the date and place that you received RHOGAM after delivery. * During your care, you had a Rubella screen done to check for the presence of rubella antibodies in your blood. If your test was negative, you will receive a Rubella vaccine prior to discharge. This vaccine may cause a fever, soreness at the injection site and flu-like symptoms. If these symptoms persist, notify your health care practitioner. is not advised for one month after a Rubella vaccine. * Verbalizes understanding of car seat law as reviewed with patient nursing. * Car Seat hand-out given and reviewed with patient by nursing. * Shaken baby information reviewed with patient by nursing. Call you doctor if: * Heavy bleeding (saturating several pads an hour) or passing clots the size of your fist. * A fever >101 degrees F (38.3 degrees C) on two occasions four hours apart and /or chills. * Unusual pain in the pelvic or vaginal areas. * Call the doctor for any increased redness, drainage or swelling around the incision and any pain unrelieved by prescribed pain medication. * "Baby Blues" lasting longer than two weeks. If you have any questions or concerns, call your health care practitioner at . FOLLOW UP VISIT: * Please call the office at to schedule a 6 week examination. It is important you keep this appointment. It is important for you to make arrangements for either yearly or twice yearly check-ups thereafter. Current Hospital Diet Patient's current hospital diet: Regular OB Diet Discharge Diet Recommended Diet: Regular Diet Procedures Procedures Performed: Repeat caesarean section with bilateral tubal ligation. Pending Studies Studies pending at discharge: no Medical Emergencies . Who to Call and When: Medical Emergencies: If at any time you feel your situation is an emergency, please call [phone] immediately. . Non-Emergent Contact Non-Emergency issues call your: Technical Services Librarian . . "Provider Documentation" section prepared by Byron Bradley. VTE Core Measure Inpt VTE Proph given/why not?: Treatment not indicated
[2016-08-04 07:49] VITALS: BP 121/79; PULSE 72; TEMP 36.5
[2016-08-04] MEDS ORDERED: OXYC-57 PO (08:00)
[2016-08-04] MEDS ORDERED: MTR600X PO (08:00)
[2016-08-04] MEDS: PRENATAL VITAMIN TAB PO SCH (08:14)
[2016-08-04] MEDS: DOCUSATE SODIUM 100 MG CAP PO SCH (08:14)
[2016-08-04] MEDS: SIMETHICONE 80 MG CHEW PO SCH ×2 (08:14→12:11)
[2016-08-04 12:05] VITALS: BP_DIAS 79; PULSE 72; TEMP 36.5
[2016-08-04 14:50] VITALS: BP_DIAS 79; PULSE 72; TEMP 36.5
[2016-08-04 15:08] VITALS: BP_DIAS 79; PULSE 72; TEMP 36.5
[2016-08-05] MEDS ORDERED: BISACODYL 10 MG SUPP PR PRN (16:00)
--- NOTE | 2016-08-14 08:06 | DISCHARGE SUMMARY ---
COURSE OF CARE: Ms. Blossom Gallego was admitted with a monochorionic diamniotic twin at 35 and 4/7 weeks. The patient was initially sent to labor and delivery for a nonstress test, which had previously been scheduled due to her twin . At the time of presentation, she was experiencing strong contractions. She was monitored and her cervix was examined and she was found to be in early labor. Given her gestational age of 35 and 4 confirmed early labor, prior sections her plan to decline a attempt and her desire for sterilization at the time of repeat section, the decision was made to proceed with delivery at that time. She was therefore brought to the operating room where an uncomplicated repeat low transverse section was performed for 2 viable twins. Additionally, she underwent surgical sterilization by ligation and division of each fallopian tube. Her surgery was uncomplicated. Please see operative report for details. Postoperatively, the patient's recovery was uncomplicated with normal vital signs, a postop hemoglobin of 11.1 from a preop of 13.4 and a recovery course which was notable for ability to void and ambulate on postop day 1 with good pain control and ability to breastfeed as desired. The patient was noted to have a blood type which was Rh positive and she was rubella immune. The patient was discharged to home in good condition on 08/04/2016 at which time she was provided with 20 tablets of Percocet and 30 tablets of prescription strength ibuprofen to be used as needed for pain. She was instructed to follow up in the office at the usual 6-week interval.
== END 2016-08-04 15:23 | disposition home or self-care (01) | DRG 765 ==
LOC: C.OPB 10:45 → C.LD 10:45 → C.OPB 13:26 → C.LD 13:26 → C.OBG 21:26
PROVIDERS: ADMIT Obstetrics & Gynecology; ATTEND Obstetrics & Gynecology
PROC: 10D00Z1 Extraction of Products of Conception, Low, Open Approach (ICD-10-PCS; principal; 2016-08-01 17:00)
PROC: 0UB70ZZ Excision of Bilateral Fallopian Tubes, Open Approach (ICD-10-PCS; principal; 2016-08-01 17:00)
DX: O60.14X0 Preterm labor third trimester with preterm delivery third trimester, not applicable or unspecified (principal); O30.033 Twin pregnancy, monochorionic/diamniotic, third trimester; Z37.2 Twins, both liveborn; O34.211 Maternal care for low transverse scar from previous cesarean delivery; O69.89X2 Labor and delivery complicated by other cord complications, fetus 2; Z30.2 Encounter for sterilization; Z3A.35 35 weeks gestation of pregnancy

== ENCOUNTER → 2017-11-01 | Outpatient (CLI) | payer OTHER ==
[2017-11-01 17:16] LABS: BASO % 0.3 %; BASO ABS # 0.02 K/uL (0-0.2); EOS % 6.2 %; EOS ABS # 0.42 K/uL (0-0.5); HEMATOCRIT 39.7 % (37-47); HEMOGLOBIN 13.2 g/dL (12.0-16.0); IG# 0.01 K/uL (0.00-0.02); LYMPH % 27.6 %; LYMPH ABS # 1.86 K/uL (1.2-3.4); MEAN CELL VOLUME 90.2 fL (80-100); MEAN CORPUSCULAR HGB CONC 33.2 g/dl (32-36); MEAN PLATELET VOLUME 10.4 fL (7.4-10.4); MONO % 8.2 %; MONO ABS # 0.55 K/uL (0.11-0.59); NEUT % 57.6 %; NEUT ABS # 3.87 K/uL (1.4-6.5); PLATELET COUNT 212 K/uL (130-400); RED CELL DISTRIBUTION WIDTH CV 12.4 % (11.5-14.5); RED CELL DISTRIBUTION WIDTH SD 40.7 fL (36.4-46.3); WHITE BLOOD COUNT 6.73 K/uL (4.8-10.8)
[2017-11-01 17:43] LABS: BLOOD UREA NITROGEN 14 mg/dl (7-18); CALCIUM 8.9 mg/dl (8.5-10.1); CARBON DIOXIDE 31 mmol/L (21-32); GLUCOSE 94 mg/dl (70-99); POTASSIUM 3.7 mmol/L (3.5-5.1); SODIUM 136 mmol/L (136-145)
[2017-11-01 17:54] LABS: TRANSFERRIN 231 mg/dl (200-360)
[2017-11-02 07:17] LABS: HEMOGLOBIN A1C 4.9 % (4.5-5.6)
== END | disposition home or self-care (01) ==
LOC: C.LABBC 15:22
PROVIDERS: ATTEND Physician Assistant Medical
DX: R53.83 Other fatigue (principal); R73.9 Hyperglycemia, unspecified; D64.9 Anemia, unspecified